=== PATIENT | male | born 1960 | race Caucasian/White ===

== ENCOUNTER → 2017-10-21 | Outpatient (CLI) | payer MEDICARE, MEDICAID | END | disposition home or self-care (01) | LOC: CFH 14:42 | PROVIDERS: ATTEND Physician Assistant | DX: M48.02 Spinal stenosis, cervical region (principal); M48.03 Spinal stenosis, cervicothoracic region; M12.88 Other specific arthropathies, not elsewhere classified, other specified site; M47.895 Other spondylosis, thoracolumbar region | CPT/HCPCS: 72141; 72148 ==

== ENCOUNTER 2017-12-15 07:17 | Inpatient (IN) | payer MEDICARE, MEDICAID ==
[~2017-12-15] VITALS: Ht 172.7 cm; Wt 74.9 kg
[~2017-12-15 07:17] MED LIST: BACITRACIN 50,000 UNIT ONE; BUPIVACAINE/PF 0.5% ONE; EPINEPHRINE 1 MG/ML, 1ML ONE; THROMBIN 5,000 UNIT VIAL TP ONE
[2017-12-15] MEDS ORDERED: MIDAZOLAM 1 MG/ML, 2ML ONE (08:05)
[2017-12-15] MEDS ORDERED: FENTANYL PF 250 MCG/5ML ONE (08:05)
[2017-12-15] MEDS ORDERED: LACTATED RINGERS 1,000 ML IV SCH (08:21)
[2017-12-15 08:24] VITALS: BP 232/135
[2017-12-15] MEDS ORDERED: GABAPENTIN 300 MG CAPSULE PO ONE (08:30)
[2017-12-15] MEDS ORDERED: PLEASE ENTER HEIGHT AND WEIGHT MC SCH (08:30)
[2017-12-15] MEDS ORDERED: PLEASE ENTER ALLERGIES MC SCH (08:30)
[2017-12-15] MEDS ORDERED: SCOPOLAMINE PATCH, 1.5MG PATCH.TD72 TD ONE (08:30)
[2017-12-15] MEDS ORDERED: ACETAMINOPHEN 500 MG TABLET PO ONE (08:30)
[2017-12-15] MEDS ORDERED: TRAZODONE 100MG TABLET PO PRN (09:30)
[2017-12-15] MEDS ORDERED: DOCUSATE 100 MG CAPSULE PO PRN (09:30)
[2017-12-15] MEDS ORDERED: LABETALOL 5MG/ML, 20ML IVPush PRN (09:30)
[2017-12-15] MEDS ORDERED: ONDANSETRON 2MG/ML, 2ML IVPush PRN (09:30)
[2017-12-15] MEDS ORDERED: DIPHENHYDRAMINE 50 MG/ML, 1ML IVPush ONE (09:30)
[2017-12-15] MEDS ORDERED: KETOROLAC 30 MG/1 ML IV ONE (09:30)
[2017-12-15] MEDS ORDERED: MAGNESIUM SULFATE PMX 2GM/50ML 50 ML IV ONE (09:30)
[2017-12-15] MEDS ORDERED: PROCHLORPERAZINE 5 MG/ML, 2ML IVPush ONE (09:30)
[2017-12-15] MEDS ORDERED: HYDROcodone/APAP 5/325 TABLET PO PRN (09:30)
[2017-12-15] MEDS ORDERED: POLYETHYLENE GLYCOL 17 GM PACKET PO PRN (09:30)
[2017-12-15] MEDS ORDERED: ACETAMINOPHEN 325 MG TABLET PO PRN (09:30)
[2017-12-15] MEDS ORDERED: ONDANSETRON ODT 4 MG PO PRN (09:30)
[2017-12-15] MEDS: METHOCARBAMOL 750 MG TABLET PO SCH ×3 (11:09→20:12)
[2017-12-15] MEDS: GABAPENTIN 100 MG CAPSULE PO SCH ×3 (11:09→20:12)
[2017-12-15] MEDS: SODIUM CHLORIDE FLUSH 10ML SYR IVF SCH ×2 (11:10→20:12)
[2017-12-15] MEDS: NICOTINE 21 MG/24 HR PATCH.TD24 TD SCH (11:10)
[2017-12-15 11:25] VITALS: BP 194/129
[2017-12-15 12:10] VITALS: BP 148/92
[2017-12-15 12:47] LABS: BASOPHILS # (AUTO) 0.03 x10^3/uL (0-0.1); BASOPHILS % (AUTO) 0 % (0-1); EOSINOPHILS # (AUTO) 0.05 x10^3/uL (0-0.4); EOSINOPHILS % (AUTO) 1 % (1-7); LYMPHOCYTES # (AUTO) 2.13 x10^3/uL (1-3.4); LYMPHOCYTES % (AUTO) 23 % (22-44); MD NO; MEAN CORPUSCULAR HEMOGLOBIN 32.3 pg (27.5-34.5); MEAN CORPUSCULAR HGB CONC 35.2 g/dL (33.2-36.2); MEAN CORPUSCULAR VOLUME 91.9 fL (81-97); MONOCYTES # (AUTO) 0.59 x10^3/uL (0.2-0.8); MONOCYTES % (AUTO) 6 % (2-9); NEUTROPHILS % (AUTO) 70 % (42-75); PLATELET COUNT 225 x10^3/uL (130-400); RED BLOOD COUNT 4.75 x10^6/uL (4.38-5.82); RED CELL DISTRIBUTION WIDTH 13.1 % (9.4-14.8)
[2017-12-15 12:56] LABS: ANION GAP 6 mmol/L (5-15); CHLORIDE 108 mmol/L (98-107); CREATININE 0.83 mg/dL (0.7-1.3)
[2017-12-15 12:57] VITALS: BP 156/102
[2017-12-15] MEDS ORDERED: LORazepam 2 MG/ML, 1ML IVPush PRN (15:00)
[2017-12-15 15:14] VITALS: BP 156/108
[2017-12-15] MEDS: THIAMINE 100MG TABLET PO SCH (16:37)
[2017-12-15 19:00] VITALS: BP 129/82
[2017-12-15] MEDS ORDERED: QUETIAPINE 100MG TABLET PO SCH (21:00)
[2017-12-16 02:16] VITALS: BP 131/91
[2017-12-16] MEDS: METHOCARBAMOL 750 MG TABLET PO SCH ×2 (06:24→11:00)
[2017-12-16] MEDS: GABAPENTIN 100 MG CAPSULE PO SCH ×2 (06:24→11:39)
[2017-12-16 06:57] LABS: AMPHETAMINE SCREEN, URINE Positive (Negative); BARBITURATE SCREEN, URINE Negative (Negative); BENZODIAZEPINE SCREEN, URINE Negative (Negative); CANNABINOID SCREEN, URINE Positive (Negative); COCAINE SCREEN, URINE Negative (Negative); METHADONE SCREEN, URINE Negative (Negative); OPIATE SCREEN, URINE Negative (Negative)
[2017-12-16 08:18] VITALS: BP 131/90
[2017-12-16] MEDS ORDERED: LISINOPRIL 10 MG TABLET PO SCH (09:00)
[2017-12-16] MEDS ORDERED: FOLIC ACID 1 MG TABLET PO SCH (09:00)
[2017-12-16] MEDS: THIAMINE 100MG TABLET PO SCH (09:57)
[2017-12-16] MEDS: SODIUM CHLORIDE FLUSH 10ML SYR IVF SCH (09:58)
[2017-12-16] MEDS ORDERED: THIA100T67 PO (10:57)
[2017-12-16] MEDS ORDERED: LISI-167 PO (10:57)
[2017-12-16] MEDS ORDERED: GABA-826 PO (10:57)
[2017-12-16] MEDS: NICOTINE 21 MG/24 HR PATCH.TD24 TD SCH (11:00)
== END 2017-12-16 14:27 | disposition home or self-care (01) | DRG 103 ==
LOC: ORIP 07:17 → 4EST 10:10 → DCLOUNGE 12-16 14:12
PROVIDERS: ADMIT Neurological Surgery; ATTEND Neurological Surgery
DX: G43.909 Migraine, unspecified, not intractable, without status migrainosus (principal); M50.03 Cervical disc disorder with myelopathy, cervicothoracic region; G95.89 Other specified diseases of spinal cord; I10 Essential (primary) hypertension; G89.29 Other chronic pain; F41.9 Anxiety disorder, unspecified; F32.9 Major depressive disorder, single episode, unspecified; B18.2 Chronic viral hepatitis C; M51.37 Other intervertebral disc degeneration, lumbosacral region; F12.10 Cannabis abuse, uncomplicated; F15.90 Other stimulant use, unspecified, uncomplicated; J43.9 Emphysema, unspecified; Z53.9 Procedure and treatment not carried out, unspecified reason; M48.03 Spinal stenosis, cervicothoracic region; F17.210 Nicotine dependence, cigarettes, uncomplicated; Z91.14 Patient's other noncompliance with medication regimen; Z71.6 Tobacco abuse counseling; Z82.5 Family history of asthma and other chronic lower respiratory diseases; Z83.3 Family history of diabetes mellitus; Z88.5 Allergy status to narcotic agent; Z82.49 Family history of ischemic heart disease and other diseases of the circulatory system; Z81.8 Family history of other mental and behavioral disorders; Z88.6 Allergy status to analgesic agent
CPT/HCPCS: 36415; 70450; 71045; 80048; 80307; 85025; 93005; J0171; J1885; J2250; J3010; J3490; J0780; J1200; J3475